=== PATIENT | female | born 1950 | race Caucasian/White ===

== ENCOUNTER 2024-01-09 20:27 | Emergency (ER) | payer MEDICARE ==
[~2024-01-09] VITALS: Ht 165.1 cm; Wt 84.0 kg
[~2024-01-09 20:27] MED LIST: TYLENOL325 MG PO
[2024-01-09] MEDS ORDERED: CIPROFLOXACIN 0.3% 5 ML HOME.PACK OPTH ONE (21:15)
[2024-01-09 21:22] VITALS: BP 148/86
== END 2024-01-09 21:23 | disposition home or self-care (01) ==
LOC: ED 20:27
DX: H10.9 Unspecified conjunctivitis (principal)
CPT/HCPCS: 99283